=== PATIENT | female | born 1995 | race Asian ===

== ENCOUNTER 2019-05-11 21:05 | Emergency (ER) | payer OTHER ==
[2019-05-11 21:18] VITALS: BP 133/78
--- NOTE | 2019-05-11 21:41 | ED Physician Documentation ---
PD HPI SKIN - Stated complaint Stated Complaint: RT LEG LUMP - Chief complaint Chief Complaint: Wound - History obtained from History obtained from: Patient - History of Present Illness Timing - onset: Yesterday Timing - details: Abrupt onset (LLE hamstring lump/redness/ itchy, worse today. Poss bug bite.) PD PAST MEDICAL HISTORY - Past Medical History Past Medical History: No Psych: Anxiety - Past Surgical History Past Surgical History: No - Present Medications Home Medications: Ambulatory Orders Medication Instructions Recorded Confirmed RX: predniSONE [Deltasone] 60 mg PO DAILY 5 Days tablet 05/11/19 - Allergies Allergies/Adverse Reactions: Allergies Allergy/AdvReac Type Severity Reaction Status Date / Time No Known Drug Allergies Allergy Verified 05/11/19 21:18 - Social History Does the pt smoke?: No Smoking Status: Never smoker Does the pt drink ETOH?: Yes ETOH Use: Wine Does the pt have substance abuse?: No - Immunizations Immunizations are current?: Yes PD ED PE NORMAL - Vitals Vital signs reviewed: Yes - General General: Alert and oriented X 3, No acute distress - Derm Derm: Other (On the back of the right hamstring, low down just above the popliteal fossa there appears to be what looks like a inflamed mosquito bite. Its about an 8 cm round area that is red and slightly raised. It is not quite as red as it would be if it was cellulitis. Bedside ultrasound shows cobblestoning but no abscess.) - Neuro Neuro: Alert and oriented X 3, Normal speech Results - Vitals Vitals: Vital Signs - 24 hr 05/11/19 21:13 Temperature 36.7 C Heart Rate 98 Respiratory 20 Rate Blood Pressure 133/78 H O2 Saturation 100 Oxygen O2 Source Room air Departure - Departure Disposition: 01 Home, Self Care Clinical Impression: Mosquito bite Condition: Good Record reviewed to determine appropriate education?: Yes Instructions: ED Bite Mosquito Prescriptions: RX: predniSONE [Deltasone] 60 mg PO DAILY 5 Days tablet Comments: Return for significant pain, fevers, or general worsening. Should be better in a few days.
[2019-05-11] MEDS ORDERED: predniSONE 20 MG TABLET PO STA (21:42)
== END 2019-05-11 21:50 | disposition home or self-care (01) ==
LOC: ED 21:05
DX: S70.362A Insect bite (nonvenomous), left thigh, initial encounter (principal); W57.XXXA Bitten or stung by nonvenomous insect and other nonvenomous arthropods, initial encounter
CPT/HCPCS: 99281; 99282; J7512